=== PATIENT | male | born 1970 | race Caucasian/White ===

== ENCOUNTER 2017-04-27 07:42 | Emergency (ER) | payer BC ==
[2017-04-27 09:52] VITALS: BP 133/88
--- NOTE | 2017-04-27 10:34 | UC ---
Throat Pain/Nasal Jcarlos HPI - HPI Summary HPI Summary: 46 y/o male presents to the urgent care c/o sore throat and JOHNSTON for the past 36 hrs. Patient report his pain in 5/10 and he has ear pain with pressure. Pt denies fever, SOB, cough, N/V/D. chest pain and sick contacts. Patient has not other complains - History of Current Complaint Chief Complaint: UCGeneralIllness Stated Complaint: SORE THROAT AND HEADACHE Time Seen by Provider: 04/27/17 09:22 Hx Obtained From: Patient Onset/Duration: Gradual Onset, Lasting Hours, Still Present Severity: Moderate Pain Intensity: 5 Pain Scale Used: 0-10 Numeric Associated Signs & Symptoms: Positive: Dysphagia. Negative: Hoarseness, Sinus Discomfort, Nasal Discharge, Fever, Vomiting, Rash - Epiglottits Risk Factors Epiglottis Risk Factors: Negative - Allergies/Home Medications Allergies/Adverse Reactions: Allergies Allergy/AdvReac Type Severity Reaction Status Date / Time Phenobarbital Allergy Mild Rash Verified 04/27/17 07:49 PMH/Surg Hx/FS Hx/Imm Hx - Additional Past Medical History Additional PMH: positive factor V leiden, EtOH abuse Previously Healthy: Yes - Surgical History Surgical History: Yes Surgery Procedure, Year, and Place: ABD HERNIA REPAIR; mohs nose and forehead - Family History Known Family History: Positive: None Family History: NON CONTRIBUTORY - Social History Occupation: Employed Full-time Lives: With Family Alcohol Use: None Substance Use Type: None Smoking Status (MU): Never Smoked Tobacco - Immunization History Most Recent Tetanus Shot: not sure Review of Systems Constitutional: Negative Skin: Negative Eyes: Negative ENT: Sore Throat, Ear Ache Respiratory: Negative Cardiovascular: Negative Gastrointestinal: Negative Genitourinary: Negative Motor: Negative Musculoskeletal: Negative Neurological: Negative Psychological: Negative All Other Systems Reviewed And Are Negative: Yes Physical Exam Triage Information Reviewed: Yes Appearance: Well-Appearing, No Pain Distress, Well-Nourished Vital Signs: Initial Vital Signs Temp 99.7 F 04/27/17 07:50 Pulse 84 04/27/17 07:50 Resp 16 04/27/17 07:50 BP 115/71 04/27/17 07:50 Pulse Ox 100 04/27/17 07:50 Vital Signs Reviewed: Yes Eye Exam: Normal Eyes: Positive: Conjunctiva Clear ENT: Positive: Hearing grossly normal, Pharyngeal erythema - b/l exudate, Tonsillar swelling, Tonsillar exudate - b/l, Other: - Unable to viasualize TMS due to b/l ear canal impacted with cerumen. Neck exam: Normal Neck: Positive: Supple, Nontender, Enlarged Nodes @ - anterior cervical lymphoadenopathy b/l Respiratory Exam: Normal Respiratory: Positive: Chest non-tender, Lungs clear, Normal breath sounds Cardiovascular Exam: Normal Cardiovascular: Positive: RRR, No Murmur, Pulses Normal Abdominal Exam: Normal Abdomen Description: Positive: Nontender, No Organomegaly, Soft Bowel Sounds: Positive: Present Musculoskeletal Exam: Normal Musculoskeletal: Positive: Strength Intact, ROM Intact, No Edema Neurological Exam: Normal Psychological Exam: Normal Skin Exam: Normal Throat Pain/Nasal Course/Dx - Course Course Of Treatment: Sore throat with JOHNSTON and ear pressure: Hx obtained. PE abnormal findings:ENT: Positive: Hearing grossly normal, Pharyngeal erythema - b /l exudate, Tonsillar swelling, Tonsillar exudate - b/l, Other: - Unable to viasualize TMS due to b/l ear canal impacted with cerumen. Rapid strep ordered : result: positive. Pt Rx Amoxicillin 875mg PO BID x 10 days, Ibuprofen 800mg PO q8hrs prn and Carbamide peroxide otic for his cerumen impaction. Pt advised Please take medications as instructed and finish the full course of treatment to avoid recurrent infection. If symptoms do not improve or worsen after the course of antibiotics, he should either follow up with your PCP or return to the urgent care for further evaluation and treatment. Pt understood and agreed. - Differential Dx/Diagnosis Differential Diagnosis/HQI/PQRI: Influenza, Laryngitis, Mononucleosis, Otitis Media, Pharyngitis, URI Provider Diagnoses: strep pharyngitis, B/L ear impaction. Discharge - Discharge Plan Condition: Stable Disposition: HOME Prescriptions: Amoxicillin (*) [Amoxicillin 875 MG (*)] 875 mg PO BID #20 tab Carbamide Peroxide 6.5% OTIC* [DEBROX 6.5% Otic*] 5 drop BOTH EARS BID #1 bottle Ibuprofen TAB* [Motrin TAB* 800 MG] 800 mg PO Q6H #20 tab Patient Education Materials: Strep Throat (ED) Referrals: John Wagner MD [Primary Care Provider] - 2 Days Additional Instructions: Please take medications as instructed and finish the full course of treatment to avoid recurrent infection. If you do not improve or if symptoms worsen after the course of antibiotics, you should either follow up with your PCP or return to the urgent care for further evaluation and treatment.
== END 2017-04-27 10:15 | disposition home or self-care (01) ==
LOC: UCEAST 07:42
DX: J02.0 Streptococcal pharyngitis (principal); H61.23 Impacted cerumen, bilateral; D68.51 Activated protein C resistance
CPT/HCPCS: 87651; 99212; G0463

== ENCOUNTER 2017-06-20 07:06 | Emergency (ER) | payer BC ==
[2017-06-20 07:14] VITALS: BP 132/76
[2017-06-20] MEDS ORDERED: Tetan/Diph/Pertus SYR(Tdap)* 0.5 ML SYR(BOOSTRIX) use SYR IM ONE (07:19)
--- NOTE | 2017-06-20 08:34 | ED ---
Skin Complaint - HPI Summary HPI Summary: 46 y/o male presents to the urgent care c/o puncture wound after steeping on a nail while walking over [place] manure on 06/18/2017. Pt states he was wearing boots and his Tetanus vaccine was given on 07/2015. He states pain is 2/10 specially at touch or walking. Pt denies redness, swelling, fever, SOB, chest pain, N/V/D. Pt has not other complains. - History of Current Complaint Chief Complaint: UCWounds Time Seen by Provider: 06/20/17 07:19 Stated Complaint: PUNCTURE WOUND Hx Obtained From: Patient Onset/Duration: Started Days Ago, Traumatic, Still Present Skin Exposure Onset/Duration: Days Ago - 06/18/2017 Timing: Constant, Lasting Days Onset Severity: Moderate Current Severity: Mild Pain Intensity: 2 Pain Scale Used: 0-10 Numeric Skin Location: Discrete - Plantar side of the RT foot w/ puncture wound Character: Pain Aggravating Symptom(s): Touch Alleviating Symptom(s): Cold Associated Signs & Symptoms: Negative Related History: Trauma - Allergy/Home Medications Allergies/Adverse Reactions: Allergies Allergy/AdvReac Type Severity Reaction Status Date / Time Phenobarbital Allergy Mild Rash Verified 04/27/17 07:49 PMH/Surg Hx/FS Hx/Imm Hx Previously Healthy: Yes - Cancer History Cancer Type, Location and Year: basal cell CA to nose and forehead. - Surgical History Surgery Procedure, Year, and Place: ABD HERNIA REPAIR; mohs nose and forehead Infectious Disease History: No Infectious Disease History: Denies: Hx Clostridium Difficile, Hx Hepatitis, Hx Human Immunodeficiency Virus (HIV), Hx of Known/Suspected MRSA, Hx Shingles, Hx Tuberculosis, Hx Known/ Suspected VRE, Hx Known/Suspected VRSA, History Other Infectious Disease, Traveled Outside the [place] in Last 30 Days - Family History Known Family History: Positive: Hypertension Family History: NON CONTRIBUTORY - Social History Occupation: Employed Full-time Lives: With Family Alcohol Use: None Substance Use Type: Reports: None Smoking Status (MU): Never Smoked Tobacco Review of Systems Constitutional: Negative Eyes: Negative ENT: Negative Cardiovascular: Negative Respiratory: Negative Gastrointestinal: Negative Genitourinary: Negative Musculoskeletal: Negative Positive: Other - RT foot plantar pain s/p puncture wound, Neurological: Negative Psychological: Normal All Other Systems Reviewed And Are Negative: Yes Physical Exam Triage Information Reviewed: Yes Vital Signs On Initial Exam: Initial Vitals Temp Pulse Resp BP Pulse Ox 97.6 F 65 18 132/76 99 06/20/17 07:10 06/20/17 07:10 06/20/17 07:10 06/20/17 07:10 06/20/17 07:10 Appearance: Positive: Well-Appearing, No Pain Distress, Well-Nourished Skin: Positive: Other - Discrete puncture wound w/ minimum erythema at the medial anterior plantar portion of the RT foot. mild tenderness on deep palpation, no swelling. FROM of RT foot, positive pulses, capillary refill, sensation intact, and reflexes WNL. Head/Face: Positive: Normal Head/Face Inspection Eyes: Positive: Normal, EOMI, CHIKA, Conjunctiva Clear ENT: Positive: Normal ENT inspection, Hearing grossly normal, Pharynx normal, TMs normal Neck: Positive: Supple, Nontender, No Lymphadenopathy Respiratory/Lung Sounds: Positive: Clear to Auscultation, Breath Sounds Present , Decreased Breath Sounds Cardiovascular: Positive: Normal, RRR, Pulses are Symmetrical in both Upper and Lower Extremities, S1, S2 Abdomen Description: Positive: Nontender, No Organomegaly, Soft. Negative: CVA Tenderness (R), CVA Tenderness (L) Bowel Sounds: Positive: Present Musculoskeletal: Positive: Normal, Strength/ROM Intact, Limited @ Neurological: Positive: Normal, Sensory/Motor Intact, Alert, Oriented to Person Place, Time, CN Intact II-III, Reflexes Intact, Normal Gait Psychiatric: Positive: Normal Diagnostics - Vital Signs Vital Signs Temp Pulse Resp BP Pulse Ox 06/20/17 07:10 97.6 F 65 18 132/76 99 - Laboratory Lab Statement: Any lab studies that have been ordered have been reviewed, and results considered in the medical decision making process. Course/Dx - Course Course Of Treatment: 46 y/o male presents to the urgent care c/o puncture wound after steeping on a nail while walking over [place] manure on 06/18/2017. Pt states he was wearing boots and his Tetanus vaccine was given on 07/2015. He states pain is 2/10 specially at touch or walking. Pt denies redness, swelling , fever, SOB, chest pain, N/V/D. HX obtained. Pt Tetanus vaccine given on 2014. Pt Rx Augmentin PO and Ibuprofen PO and advised if redness, fever and swelling develops to please return to the urgent care or go to the ER. Pt understood and agreed and left the clinic ambulating. - Differential Diagnoses - Skin Complaint Differential Diagnoses: Allergic Reaction, Cellulitis, Tick Born Illness, Other - puncture wound, laceration, abrasion - Diagnoses Provider Diagnoses: Puncture wound of right foot excluding toes without complication Discharge - Discharge Plan Condition: Stable Disposition: HOME Prescriptions: Amoxicillin/Clavulanate TAB* [Augmentin TAB 875*] 875 mg PO BID #20 tab Ibuprofen TAB* [Motrin TAB* 800 MG] 800 mg PO Q6H #20 tab Patient Education Materials: Puncture Wound (ED) Referrals: John Wagner MD [Primary Care Provider] - 4 Days Additional Instructions: AUGMENTIN: Augmentin is a mixture of amoxicillin and clavulanate. Amoxicillin is a member of the penicillin family. It covers the germs likely to cause ear, bronchial, and urinary infections better than plain penicillin. The addition of clavulanate allows it to cover staph infections of the skin, as well as resistant cases of ear and sinus infections. Your physician has chosen Augmentin for you because of the special nature of your situation. Augmentin is best taken with meals. Nausea after taking the medication is rare, but can occur. Diarrhea can occur, particularly in small children. Vaginal yeast infections, and oral thrush in infants are also common. Contact your physician if these problems occur. Allergy to penicillins is common. If you have had an allergic reaction to any drug of the penicillin family, you should never take any other penicillin. Notify your doctor at once if you develop hives, shortness of breath, swelling, or faintness. ANYTIME YOU TAKE AN ANTIBIOTIC, IT IS IMPORTANT TO REPLENISH THE BODY'S SUPPLY OF "GOOD BACTERIA." YOU CAN GET GOOD BACTERIA FROM HIGH QUALITY CULTURED FOODS SUCH LOCAL YOGURT, SOUR KRAUT, MINDY MAULIK, NATURALLY FERMENTED PICKLES AND PROBIOTIC DRINKS. YOU CAN ALSO GET GOOD BACTERIA FROM A PROBIOTIC SUPPLEMENT.
== END 2017-06-20 08:41 | disposition home or self-care (01) ==
LOC: UCEAST 07:06
DX: S91.139A Puncture wound without foreign body of unspecified toe(s) without damage to nail, initial encounter (principal); Z85.828 Personal history of other malignant neoplasm of skin; W45.0XXA Nail entering through skin, initial encounter
CPT/HCPCS: 99212; G0463

== ENCOUNTER 2017-09-02 21:28 | Observation (INO) | payer BC ==
[2017-09-02] MEDS ORDERED: NS 0.9% 1000 ML* 1,000 ML IV ONE (23:16)
[2017-09-02] MEDS ORDERED: DOXYcycline CAP(*) 100 MG PO ONE (23:18)
[2017-09-03 00:30] LABS: Albumin 4.4 g/dL (3.2-5.2); Total Bilirubin 0.9 mg/dL (0.2-1.0)
[2017-09-03 00:31] LABS: Calcium 9.5 mg/dL (8.6-10.3); EGFR African American 103.5 (>60); EGFR Non-African American 80.4 (>60); Globulin 2.9 g/dL (2-4); Potassium 3.9 mmol/L (3.5-5.0); Total Protein 7.3 g/dL (6.4-8.9)
[2017-09-03 00:48] LABS: Hematocrit 41 % (42-52); Hemoglobin 13.6 g/dl (14.0-18.0); Mean Corpuscular HGB Conc 34 g/dl (31-36); Mean Corpuscular Hemoglobin 29 pg (27-31); Mean Corpuscular Volume 87 fL (80-94); Mean Platelet Volume 8 um3 (7.4-10.4); Red Blood Count 4.68 10^6/ul (4.0-5.4); Red Cell Distribution Width 13 % (10.5-15); White Blood Count 15.4 10^3/ul (3.5-10.8)
[2017-09-03] MEDS ORDERED: Iohexol 300* (CONTRAST) 10 ML SDV IV ONE (01:47)
[2017-09-03] MEDS ORDERED: Ertapenem* 1 GM in NS 0.9% 50 ML* 50 ML IVPB ONE (03:37)
[2017-09-03] MEDS ORDERED: Morphine INJ* 2 MG/ML 1 ML SYRINGE (TWO MG - NEW SYRINGE VERSION) IV PRN (03:45)
[2017-09-03] MEDS ORDERED: Metoclopramide IV* 5 MG/ML 2 ML VIAL IV PRN (03:45)
[2017-09-03 03:47] LABS: Urine Bilirubin Negative (Negative); Urine Glucose Negative (Negative); Urine Nitrite Negative (Negative)
[2017-09-03] MEDS ORDERED: NS 0.9% 50 ML* 50 ML ONE (03:51)
--- NOTE | 2017-09-03 05:07 | ED ---
Sarah Kamara Emily, scribed for Guero Torres on 09/02/17 at 2317 . Abdominal Pain/Male - HPI Summary HPI Summary: This patient is a 46 year old M presenting to [facility] accompanied by family with a chief complaint of RLQ abd pain since 1800 today. The patient rates the pain 4 /10 in severity. Symptoms aggravated by nothing. Symptoms alleviated by nothing. Patient reports bloating, nausea, vomiting, and diaphoresis. Patient denies diarrhea, hematuria, urinary frequency, CP, and SOB. Pt reports he removed a tick from his left thigh yesterday. - History of Current Complaint Chief Complaint: EDAbdPain Stated Complaint: ABD PAIN Time Seen by Provider: 09/02/17 22:41 Hx Obtained From: Patient Onset/Duration: Sudden Onset, Lasting Hours, Still Present Timing: Constant Severity Initially: Moderate Severity Currently: Moderate Pain Intensity: 4 Pain Scale Used: 0-10 Numeric Location: Discrete At: RLQ Aggravating Factor(s): Nothing Alleviating Factor(s): Nothing Associated Signs And Symptoms: Positive: Other - Positive bloating, nausea, vomiting, and diaphoresis. Negative diarrhea, hematuria, urinary frequency, CP, and SOB - Allergies/Home Medications Allergies/Adverse Reactions: Allergies Allergy/AdvReac Type Severity Reaction Status Date / Time Phenobarbital Allergy Mild Rash Verified 09/02/17 21:36 PMH/Surg Hx/FS Hx/Imm Hx Previously Healthy: No Opthamlomology History: Denies: Hx Legally Blind EENT History: Denies: Hx Deafness - Cancer History Cancer Type, Location and Year: basal cell CA to nose and forehead. - Surgical History Surgery Procedure, Year, and Place: ABD HERNIA REPAIR; mohs nose and forehead Infectious Disease History: No Infectious Disease History: Denies: Hx Clostridium Difficile, Hx Hepatitis, Hx Human Immunodeficiency Virus (HIV), Hx of Known/Suspected MRSA, Hx Shingles, Hx Tuberculosis, Hx Known/ Suspected VRE, Hx Known/Suspected VRSA, History Other Infectious Disease, Traveled Outside the [place] in Last 30 Days - Family History Known Family History: Positive: Hypertension Family History: NON CONTRIBUTORY - Social History Occupation: Employed Full-time Lives: With Family Alcohol Use: None Substance Use Type: Reports: None Smoking Status (MU): Never Smoked Tobacco Review of Systems Positive: Skin Diaphoresis Negative: Chest Pain Negative: Shortness Of Breath Positive: Abdominal Pain, Vomiting, Nausea, Other - Positive bloating. Negative : Diarrhea Negative: frequency, hematuria All Other Systems Reviewed And Are Negative: Yes Physical Exam Triage Information Reviewed: Yes Vital Signs On Initial Exam: Initial Vitals Temp Pulse Resp BP Pulse Ox 97.1 F 52 16 116/72 100 09/02/17 21:31 09/02/17 21:31 09/02/17 21:31 09/02/17 21:31 09/02/17 21:31 Vital Signs Reviewed: Yes Appearance: Positive: Well-Appearing, No Pain Distress Skin: Positive: Warm, Skin Color Reflects Adequate Perfusion, Dry, Other - Insect bite over L inner thigh Head/Face: Positive: Normal Head/Face Inspection Eyes: Positive: EOMI, CHIKA ENT: Positive: Normal ENT inspection Neck: Positive: Supple, Nontender Respiratory/Lung Sounds: Positive: Clear to Auscultation, Breath Sounds Present Cardiovascular: Positive: RRR, Pulses are Symmetrical in both Upper and Lower Extremities Abdomen Description: Positive: Soft, Other: - Tenderness in RLQ Musculoskeletal: Positive: Normal, Strength/ROM Intact Neurological: Positive: Normal, Sensory/Motor Intact, Alert, Oriented to Person Place, Time Diagnostics - Vital Signs Vital Signs Temp Pulse Resp BP Pulse Ox 09/02/17 21:31 97.1 F 52 16 116/72 100 - Laboratory Lab Results: Lab Results 09/02/17 09/03/17 09/03/17 Range/Units 23:50 00:05 00:05 WBC 15.4 H (3.5-10.8) 10^3/ul RBC 4.68 (4.0-5.4) 10^6/ul Hgb 13.6 L (14.0-18.0) g/dl Hct 41 L (42-52) % MCV 87 (80-94) fL MCH 29 (27-31) pg MCHC 34 (31-36) g/dl RDW 13 (10.5-15) % Plt Count 222 (150-450) 10^3/ul MPV 8 (7.4-10.4) um3 Neut % (Auto) 89.1 H (38-83) % Lymph % (Auto) 5.0 L (25-47) % [place] % (Auto) 5.4 (1-9) % Eos % (Auto) 0.2 (0-6) % Baso % (Auto) 0.3 (0-2) % Absolute Neuts (auto) 13.7 H (1.5-7.7) 10^3/ul Absolute Lymphs (auto) 0.8 L (1.0-4.8) 10^3/ul Absolute Monos (auto) 0.8 (0-0.8) 10^3/ul Absolute Eos (auto) 0 (0-0.6) 10^3/ul Absolute Basos (auto) 0.1 (0-0.2) 10^3/ul Absolute Nucleated RBC 0 10^3/ul Nucleated RBC % 0 Sodium 135 (133-145) mmol/L Potassium 3.9 (3.5-5.0) mmol/L Chloride 102 (101-111) mmol/L Carbon Dioxide 24 (22-32) mmol/L Anion Gap 9 (2-11) mmol/L BUN 19 (6-24) mg/dL Creatinine 1.00 (0.67-1.17) mg/dL Est GFR ( Amer) 103.5 (>60) Est GFR (Non-Af Amer) 80.4 (>60) BUN/Creatinine Ratio 19.0 (8-20) Glucose 106 H (70-100) mg/dL Lactic Acid 0.7 (0.5-2.0) mmol/L Calcium 9.5 (8.6-10.3) mg/dL Total Bilirubin 0.90 (0.2-1.0) mg/dL AST 18 (13-39) U/L ALT 20 (7-52) U/L Alkaline Phosphatase 66 (34-104) U/L Troponin I 0.00 (<0.04) ng/mL Total Protein 7.3 (6.4-8.9) g/dL Albumin 4.4 (3.2-5.2) g/dL Globulin 2.9 (2-4) g/dL Albumin/Globulin Ratio 1.5 (1-3) Lipase 26 (11.0-82.0) U/L Urine Color Urine Appearance Urine pH (5-9) Ur Specific [place] (1.010-1.030) Urine Protein (Negative) Urine Ketones (Negative) Urine Blood (Negative) Urine Nitrate (Negative) Urine Bilirubin (Negative) Urine Urobilinogen (Negative) Ur Leukocyte Esterase (Negative) Urine Glucose (Negative) 09/03/17 Range/Units 02:15 WBC (3.5-10.8) 10^3/ul RBC (4.0-5.4) 10^6/ul Hgb (14.0-18.0) g/dl Hct (42-52) % MCV (80-94) fL MCH (27-31) pg MCHC (31-36) g/dl RDW (10.5-15) % Plt Count (150-450) 10^3/ul MPV (7.4-10.4) um3 Neut % (Auto) (38-83) % Lymph % (Auto) (25-47) % [place] % (Auto) (1-9) % Eos % (Auto) (0-6) % Baso % (Auto) (0-2) % Absolute Neuts (auto) (1.5-7.7) 10^3/ul Absolute Lymphs (auto) (1.0-4.8) 10^3/ul Absolute Monos (auto) (0-0.8) 10^3/ul Absolute Eos (auto) (0-0.6) 10^3/ul Absolute Basos (auto) (0-0.2) 10^3/ul Absolute Nucleated RBC 10^3/ul Nucleated RBC % Sodium (133-145) mmol/L Potassium (3.5-5.0) mmol/L Chloride (101-111) mmol/L Carbon Dioxide (22-32) mmol/L Anion Gap (2-11) mmol/L BUN (6-24) mg/dL Creatinine (0.67-1.17) mg/dL Est GFR ( Amer) (>60) Est GFR (Non-Af Amer) (>60) BUN/Creatinine Ratio (8-20) Glucose (70-100) mg/dL Lactic Acid (0.5-2.0) mmol/L Calcium (8.6-10.3) mg/dL Total Bilirubin (0.2-1.0) mg/dL AST (13-39) U/L ALT (7-52) U/L Alkaline Phosphatase (34-104) U/L Troponin I (<0.04) ng/mL Total Protein (6.4-8.9) g/dL Albumin (3.2-5.2) g/dL Globulin (2-4) g/dL Albumin/Globulin Ratio (1-3) Lipase (11.0-82.0) U/L Urine Color Yellow Urine Appearance Clear Urine pH 5.0 (5-9) Ur Specific [place] 1.021 (1.010-1.030) Urine Protein Negative (Negative) Urine Ketones 2+ H (Negative) Urine Blood Negative (Negative) Urine Nitrate Negative (Negative) Urine Bilirubin Negative (Negative) Urine Urobilinogen Negative (Negative) Ur Leukocyte Esterase Negative (Negative) Urine Glucose Negative (Negative) Result Diagrams: 09/03/17 00:05 09/02/17 23:50 Lab Statement: Any lab studies that have been ordered have been reviewed, and results considered in the medical decision making process. - CT Abdominal Pelvic CT Interpretation Completed By: Radiologist - A CT A/P read by radiologist reveals thick-walled mid appendix up to 13 mm diameter in its mid portion with adjacent peritoneal thickening and no contrast filling despite contrast passage into colon, suspicious for acute appendicitis. No abscess, free fluid or free air. Unremarkable pancreas and gallbladder. Tiny cortical hypodensity right kidney. Small right hepatic cyst or hemangioma. Gastroesophageal reflux. ED physician has reviewed this radiology report and agrees. Abdominal Pain Fem Course/Dx - Course Assessment/Plan: This patient is a 46 year old M [facility] by family with a chief complaint of RLQ abd pain since 1800 today. The patient rates the pain 4/10 in severity. Symptoms aggravated by nothing. Symptoms alleviated by nothing. Patient reports bloating, nausea, vomiting, and diaphoresis. Patient denies diarrhea, hematuria, urinary frequency, CP, and SOB. Pt reports he removed a tick from his left thigh yesterday. Physical Exam Findings. Tenderness in RLQ. Insect bite redness over L inner thigh. Medical Decision Making. A CT A/P read by radiologist reveals thick-walled mid appendix up to 13 mm diameter in its mid portion with adjacent peritoneal thickening and no contrast filling despite contrast passage into colon, suspicious for acute appendicitis. No abscess, free fluid or free air. Unremarkable pancreas and gallbladder. Tiny cortical hypodensity right kidney. Small right hepatic cyst or hemangioma. Gastroesophageal reflux. ED physician has reviewed this radiology report and agrees. In the ED course the patient was given fluids, Invanz, Doxycycline, and contrast. We discussed patient care with Dr. Santoyo and they recommended admitting pt. Acute appendicitis; admit pt to Dr. Santoyo. The patient is agreeable with this plan. - Diagnoses Differential Diagnosis/HQI/PQRI: Appendicitis, Bowel Obstruction, Constipation, Diverticulitis, Hepatitis, Pancreatitis, Peptic Ulcer Disease, Renal Colic, Ureteral Stone Provider Diagnoses: Acute appendicitis - Provider Notifications Discussed Care Of Patient With: Ortega Santoyo Time Discussed With Above Provider: 03:41 Instructed by Provider To: Other - Consult with Dr. Santoyo (surgery) at 0341. He agrees to admit pt. Discharge - Discharge Plan Condition: Stable Disposition: ADMITTED TO [facility] The documentation as recorded by the Sarah hedrick Emily accurately reflects the service I personally performed and the decisions made by Melissa call Emmanuel.
[2017-09-03] MEDS ORDERED: Lidocaine 2% PF * 5 ML VIAL ONE (08:37)
[2017-09-03] MEDS ORDERED: KETAMINE HCL* 50 MG/ML 10 ML VIAL ONE (08:37)
[2017-09-03] MEDS ORDERED: Propofol* 10 MG/ML 20 ML BTL IV PUSH ONE (08:37)
[2017-09-03] MEDS ORDERED: Cisatracurium* 2 MG/ML MDV 5 ML ONE (08:37)
[2017-09-03] MEDS ORDERED: Ketorolac INJ* 30 MG/ML 1 ML VIAL ONE (08:37)
[2017-09-03] MEDS ORDERED: Midazolam* 1 MG/ML 5 ML VIAL (5 MG) ONE (08:37)
[2017-09-03] MEDS ORDERED: Dexamethasone IV* 4 MG/ML 1 ML (4 MG) ONE (08:37)
[2017-09-03] MEDS ORDERED: Ondansetron INJ* 2 MG/ML VIAL ONE (08:37)
[2017-09-03] MEDS ORDERED: fentaNYL* 50 MCG/ML 2 ML VIAL (100 MCG VIAL) ONE ×2 (08:37→10:29)
[2017-09-03] MEDS ORDERED: Piperacillin/Tazobactam VIAL*) 3.375 GM VIAL (COMPD & OVERRIDE) IVPB ONE (09:04)
[2017-09-03] MEDS ORDERED: ceFAZolin 2 GM PREMIX (*) 2 GM/50 ML BAG IVPB ONE (09:07)
[2017-09-03] MEDS ORDERED: Famotidine IV* 10 MG/ML 2 ML (20 mg) ONE (09:34)
[2017-09-03] MEDS ORDERED: Bupivacaine 0.5% SDV PF* 30 ML VIAL ONE (09:34)
[2017-09-03] MEDS ORDERED: fentaNYL* 50 MCG/ML 2 ML VIAL (100 MCG VIAL) IV PRN (09:51)
[2017-09-03] MEDS ORDERED: DiMENhydriNATE IV* 50 MG/ML VIAL IV PUSH PRN (09:51)
[2017-09-03] MEDS ORDERED: oxyCODONE/Acetamin 5/325 MG* TAB PO PRN ×2 (09:51→11:04)
[2017-09-03] MEDS ORDERED: Ondansetron INJ* 2 MG/ML VIAL IV PRN ×2 (09:51→11:04)
--- NOTE | 2017-09-03 09:59 | HP ---
CC: Dr. John [facility]; [facility] HISTORY AND PHYSICAL: DATE OF ADMISSION: 09/03/17 HISTORY OF PRESENT ILLNESS: I was contacted in the overnight period regarding Mr. Rodgers, a 46-y ear-old gentleman, who presented to the emergency room with complaints of right lower quadrant pain starting at 5 p.m. yesterday. Workup in the emergency room included a CAT scan and labs that was co nsistent with acute appendicitis. I asked the patient to be admitted to my service and now I see hi m today. It is approximately 4 hours since the admission. The patient continues to complain of right lower quadrant pain, recently has had a dose of morphine. He also had antinausea medication. He had one episode of vomiting while on the CAT scanner. The patient describes acute onset of pain approximately 5 p.m. just around dinnertime. He did not e at dinner and decided to go to the hospital. The pain was focused in the right lower quadrant. It was relieved with lying still and with narcotics. It was minimally radiating to his testicle on the right, but not to his back. He denied fevers, but felt somewhat flushed on the car ride over to [facility]. He denies any previous similar symptoms. Currently, he has an appetite. He is passing flatus. He cannot remember his last bowel movement, but he has no complaints. PAST MEDICAL HISTORY: Alcoholism. He stopped drinking approximately 5 years ago and factor V Leide n. PAST SURGICAL HISTORY: Umbilical hernia repair with mesh. MEDICATIONS: None. ALLERGIES: PHENOBARBITAL. FAMILY HISTORY: Noncontributory. No family history of ulcerative colitis or Crohn's disease. SOCIAL HISTORY: He is . Lives with his . 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 Good exercise tolerance. Plays ice hockey regularly. REVIEW OF SYSTEMS: No headache or visual disturbances. No shortness of breath or chest pain. Abdo selena complaint as described. No dysuria or hematuria. No problems with bowel movements. The shar ent has never had a colonoscopy. Factor V Leiden, but he has never had issues with this. He was on Coumadin for a short period when he was dealing with alcoholism. He had been off of Coumadin. No endocrine disorders. No psychiatric illnesses. PHYSICAL EXAMINATION GENERAL: He is alert and oriented x3, in mild distress, lying in bed. VITAL SIGNS: Temperature is 99.9, blood pressure 128/61, heart rate 78. HEAD, EARS, EYES, NOSE, and THROAT: Normocephalic, atraumatic. Sclerae anicteric. Mucous membranes are dry. NECK: No lymphadenopathy. LUNGS: Clear. ABDOMEN: Soft, nondistended. Tender in McBurney's with mild voluntary guarding. No rebound. No ma ss or hernias noted. Infraumbilical scar appreciated. No CVA tenderness. EXTREMITIES: Show no pitting edema. RECTAL/TESTICULAR: Exam not performed. LABORATORY DATA: Labs reviewed. Show white count of 15.4 with left shift. H and H of 14 and 41. INR and PTT within normal limits. Chemistry panel normal along with LFTs. The patient's urinalysi s shows 2+ ketones. The patient underwent a CAT scan of the abdomen and pelvis. These images were reviewed. I see no f ree fluid. No free air. This was with p.o. contrast. Oral contrast does make it into the the cecu m, but not into an inflamed periappendix. This is consistent with acute appendicitis. IMPRESSION: Acute appendicitis without perforation. PLAN/RECOMMENDATIONS: Laparoscopic appendectomy. I outlined the details of the procedure, going ov er the risks, benefits, and alternatives. The patient wishes to proceed. We spoke of the possible complications, which include bleeding, infection, need for open procedure, need for additional proce dures, abscess formation, injury to adjacent organs, and the patient agreed. He also understands my partner, Dr. Waggoner, will be performing the surgery. He has no additional questions and a team will be brought in. He did receive a dose of antibiotics and he will receive another preoperative d ose. [id number]/[facility] #: [id number]
[2017-09-03] MEDS ORDERED: Neostigmine Methylsulfate* 2 MG/2 ML SYRINGE ONE (10:24)
[2017-09-03] MEDS ORDERED: Glycopyrrolate IV* 0.2 MG/ML 1 ML VIAL ONE (10:24)
--- NOTE | 2017-09-03 11:02 | SURGPN ---
Brief Operative Note - Surgery Procedures: Procedures OPERATIVE REPORT PRE-OP: Acute appendicitis POST-OP: Acute gangrenous appendicitis PROCEDURE: Laparoscopic appendectomy SURGEON: MD Edilson ANESTHESIA: General with local; Dr. Guevara ASST: none IVF: 1 liter of crystalloid EBL: min SPECIMEN: appendix DRAIN: none WOUND CLASS: Contaminated COMPLICATIONS: none TO PACU
[2017-09-03] MEDS ORDERED: Ketorolac INJ* 30 MG/ML 1 ML VIAL IV PUSH PRN (11:04)
[2017-09-03] MEDS ORDERED: Acetaminophen TAB* 325 MG PO PRN (11:04)
--- NOTE | 2017-09-03 11:27 | RAD ---
CLINICAL HISTORY: Right lower quadrant pain COMPARISON: None TECHNIQUE: Contrast enhanced CT examination of the abdomen and pelvis from the lung bases through the initial tuberosities. The patient received 100 mL Omnipaque 300 intravenously prior to imaging.The patient received oral contrast as well prior to imaging. FINDINGS: VISUALIZED LUNG BASES: The visualized lung bases are grossly clear. There is no pleural effusion. ABDOMEN AND PELVIS: The spleen, pancreas and adrenal glands are grossly normal in appearance. The gallbladder is normal. The kidneys are normal in appearance without focal mass, calcification or signs of hydronephrosis. The oral contrast has progressed as far as the base of the cecum. The small and large bowel are not distended. The appendix is minimally enlarged measuring 1.6 cm in diameter. There is mild periappendiceal infiltration of the mesenteric fat. There is no drainable fluid collection. There is no gross retroperitoneal or mesenteric lymphadenopathy. The pelvic viscera is normal in appearance. Vasectomy clips are noted bilaterally. The abdominal aorta and iliac arteries are normal in course and diameter. Degenerative changes include multilevel loss of intervertebral disc height involving the lower thoracic and lumbar spine.There are no sinister bone lesions. IMPRESSION: In the correct clinical setting, CT findings are consistent with early appendicitis.
[2017-09-03] MEDS: Heparin VIAL(*) 5000 UNITS/ML VIAL (FIVE THOUSAND) SUBCUT SCH ×2 (14:23→22:18)
[2017-09-03] MEDS: LR IV SCH (20:07)
--- NOTE | 2017-09-03 20:31 | OP ---
CC: [facility]; Dr. John Wagner* OPERATIVE REPORT: DATE OF OPERATION: 09/03/17 - Inpatient, room SSU 333-01 DATE OF : 70 SURGEON: Jac Waggoner MD [employer]: None. ANESTHESIOLOGIST: Cleve Guevara MD ANESTHESIA: Local with general. PRE-OP DIAGNOSIS: Acute appendicitis. POST-OP DIAGNOSIS: Acute gangrenous appendicitis. OPERATIVE PROCEDURE: Laparoscopic appendectomy. INDICATIONS: Mr. Lee Rodgers is a 46-year-old gentleman who developed abdominal distention and bloating last night around dinner time. This was associated with some nausea and anorexia and the pain developed subsequently in the right lower quadrant worsening in severity, he presented to the emergency room. He was noted to have elevated white blood cell count and a CAT scan of the abdomen and pelvis, which showed findings consistent with early acute appendicitis. He is admitted to the surgical service and received IV antibiotics. He has been kept n.p.o. He is now to proceed with appendectomy this morning. The procedure was discussed with the patient and his and the risks but not limited to bleeding, infection, intraabdominal abscess formation, injury to peritoneal and retroperitoneal structures, possibility of an open procedure, the risk of deep venous thrombosis and pulmonary embolism, as well as recovery time and activity restrictions were all discussed. The patient states that he has a factor V Leiden deficiency, which he is heterozygous, and has been on Coumadin in the past for deep venous thrombosis, but this was many years ago. It is not felt that he needs long-term anticoagulation, but appropriate precautions will be taken perioperatively using sequential compression devices and postoperative subcutaneous heparin for DVT prophylaxis and this was all discussed with the patient and his . ESTIMATED BLOOD LOSS: Minimal. IV FLUIDS: 1 L of crystalloid. WOUND CLASSIFICATION: Clean-contaminated. DRAINS: None. SPECIMENS: Appendix. FINDINGS: Acute gangrenous appendicitis in the distal two-thirds of the appendix without evidence of perforation, abscess, or purulent peritonitis. DESCRIPTION OF PROCEDURE: Written informed consent was obtained, the abdomen was marked with indelible ink and preoperative antibiotics were administered. The patient was taken to the operating room and placed in the supine position. Sequential compression devices and warming blanket were applied. General anesthesia was administered. The abdomen was prepped and draped in the usual sterile fashion. Time-out verification was completed. Initially, a small vertical incision was made about 3 fingerbreadths above the umbilicus. The patient had a previous umbilical hernia repair with mesh and I stayed superior to this area. The peritoneal cavity was entered under direct vision and a 12-mm blunt port was inserted and the abdomen was insufflated to 15 mmHg. Under direct vision, a left lower quadrant 5-mm port and a suprapubic 5-mm port was also placed. There were several adhesions to the anterior abdominal wall from the previous surgery and these were taken down bluntly with the LigaSure to improve visualization. The appendix was identified. It appeared to be intraperitoneal, but however the distal two-thirds were gangrenous without evidence of perforation or an abscess formation. There was no really purulence in the right lower quadrant either. The appendix was then elevated and then the mesoappendix was taken from distal to proximal. It appeared that there was most likely an appendicolith in the proximal portion of the appendix and the proximal third of the appendix and base of the cecum appeared to be viable and of normal caliber. Once the mesoappendix had been divided down to the healthy cecum, a borges load 45- mm stapler was used to divide the appendix at its base and it was subsequently removed from the abdominal cavity in an EndoCatch bag. Staple line appeared to be intact and hemostasis was assured. I irrigated the right lower quadrant as well as the pelvis. All ports removed under direct vision of the camera. There was no abdominal wall bleeding. The upper midline incision was closed at the fascial level with interrupted 0 Polysorb suture. The skin at all 3 incisions was approximated with a subcuticular 4-0 Polysorb suture. Steri- Strips were applied. The patient tolerated the procedure well and was taken to recovery room in stable condition. [id number]/[facility] #: [id number] JARRED
[2017-09-04] MEDS: LR IV SCH (02:35)
[2017-09-04] MEDS: Heparin VIAL(*) 5000 UNITS/ML VIAL (FIVE THOUSAND) SUBCUT SCH (06:18)
[2017-09-04 07:39] VITALS: BP 101/61
--- NOTE | 2017-09-04 08:35 | PN ---
Progress Note - Progress Note Date of Service: 09/04/17 SOAP: Subjective: Doing well with minimal pain Slept well yesterday Tolerating po and passing flatus Ambulating without difficulty. No dizziness or light headedness on getting up or ambulating Objective: Temp Pulse Resp BP Pulse Ox 98.1 F 47 18 101/61 96 09/04/17 07:20 09/04/17 07:20 09/04/17 07:39 09/04/17 07:20 09/04/17 07:39 Intake & Output 09/02/17 09/03/17 09/04/17 09/05/17 06:59 06:59 06:59 06:59 Intake Total 1050 6135 Output Total 400 3360 Balance 650 2775 Weight 195 lb 195 lb Intake: IV Fluids 1050 3505 LR 2505 Oral 2630 Output: Urine 400 3360 PEX: Comfortable Lungs are clear Cor is RRR Abdomen is soft and non-distended. Incisions are clean and dry. Bowel sounds are present. Ext without edema Assessment: POD# 1 s/p lap appy for acute gangrenous appendicitis. Bradycardia--asymptomatic and some lower BP suspect related to anesthesia-he is eating and making excellent urine and has no symptoms. Will follow for now. Plan: D/C home 5 days of oral Augmentin NSAID's for pain-he would like to avoid narcotics Post-op care reviewed, office follow up.
--- NOTE | 2017-09-04 23:09 | DS ---
CC: [facility]; John Wagner MD, [facility]* DISCHARGE SUMMARY: DATE OF ADMISSION: 09/03/17 DATE OF DISCHARGE: 09/04/17 PRINCIPAL DIAGNOSIS: Acute gangrenous appendicitis. PROCEDURE PERFORMED: Laparoscopic appendectomy. CONDITION ON DISCHARGE: Good. DISPOSITION: To home. INSTRUCTIONS FOR DISCHARGE: The patient wanted to avoid narcotic analgesia and was instructed to take nonsteroidals and plain Tylenol as needed. He was given a prescription that was sent to [facility] for Augmentin 875 mg p.o. b.i.d. for treatment of his gangrenous appendicitis and follow up. Other postoperative care instructions were reviewed and a written instruction sheet was given to him. Followup appointment was to be made in 7 to 10 days. BRIEF HISTORY: Mr. Lee Rodgers is a healthy 46-year-old gentleman, who does have a history of factor V Leiden deficiency, which is heterozygous with a remote history of deep vein thrombosis who presented to the emergency room with 68 hours of abdominal bloating and subsequent pain in the right lower quadrant. He was noted to have mild elevation of his white blood cell count and CAT scan confirmed acute appendicitis. He was admitted to the surgical service. HOSPITAL COURSE: He was started on IV antibiotics, taken to the operating room on the morning of presentation where he underwent a laparoscopic appendectomy for acute gangrenous appendicitis. There is no perforation or abscess. He tolerated it well. He had received ertapenem in the emergency room with acute 24-hour dosing. Postoperatively, he did well. His diet was advanced as tolerated. He remained afebrile. He had some relative bradycardia, although his heart rate and blood pressure were quite low on presentation and he was asymptomatic and this was felt secondary to anesthesia as well as surgical procedure. Postoperative day #1, he was tolerating regular diet. He was discharged home with the above instructions. [id number]/[facility] #: [id number] [facility]
== END 2017-09-04 11:05 | disposition home or self-care (01) ==
LOC: ED 21:28 → INTOOBSV 09-03 03:45 → SSU 09-03 03:45
PROVIDERS: ADMIT Surgery; ATTEND Surgery
PROC: 0DTJ4ZZ Resection of Appendix, Percutaneous Endoscopic Approach (ICD-10-PCS; principal; 2017-09-03 08:30)
DX: K35.80 Unspecified acute appendicitis (principal); D68.51 Activated protein C resistance
CPT/HCPCS: 36415; 74177; 80053; 81003; 83605; 83690; 84484; 85025; 85610; 85730; 86618; 88304; 96372; 96374; 96375; 99285; A9270-GY; C1776; G0378; J0690; J1100; J1335; J1644; J1885; J2250; J2270; J2405; J2543; J2704; J2765; J3010; Q9967

== ENCOUNTER 2019-09-04 18:24 | Emergency (ER) | payer BC ==
[2019-09-04 18:34] VITALS: BP 137/99
--- NOTE | 2019-09-04 18:47 | UC ---
Back Pain HPI - HPI Summary HPI Summary: per rn placement: "Pt stated that he has lower back pain. Pt has had something like this before 3 years. Pain started on Tuesday and is getting worse. Pt denies any injury, but does say that he slept in the front seat of the car for an hour" -denies trauma -no radiation into legs - just stays in b/l low back. hamstrings and hips feel tight. feels like he wants to crack it but cant -no loss bowel/bladder function. -no saddle parasthesia -has not tried anything OTC except for icy hot patch/heat/ice - History of Current Complaint Chief Complaint: UCBackPain Stated Complaint: LOWER BACK PAIN Time Seen by Provider: 09/04/19 18:35 Pain Intensity: 6 - Allergies/Home Medications Allergies/Adverse Reactions: Allergies Allergy/AdvReac Type Severity Reaction Status Date / Time phenobarbital Allergy Rash Verified 09/04/19 18:34 PMH/Surg Hx/FS Hx/Imm Hx Previously Healthy: Yes - Surgical History Surgical History: Yes Surgery Procedure, Year, and Place: ABD HERNIA REPAIR;. mohs nose and forehead - Family History Known Family History: Positive: Hypertension Family History: NON CONTRIBUTORY - Social History Alcohol Use: hx of alcoholism, 5 yrs sober Substance Use Type: None Smoking Status (MU): Never Smoked Tobacco - Immunization History Most Recent Influenza Vaccination: 08/2017 Most Recent Tetanus Shot: not sure Most Recent Pneumonia Vaccination: N/A Review of Systems All Other Systems Reviewed And Are Negative: Yes Constitutional: Positive: Negative Skin: Positive: Negative. Negative: Rash Eyes: Positive: Negative ENT: Positive: Negative Respiratory: Positive: Negative Cardiovascular: Positive: Negative Gastrointestinal: Positive: Negative Genitourinary: Positive: Negative Motor: Positive: Decreased ROM. Negative: Weakness Neurovascular: Positive: Negative Musculoskeletal: Positive: Other: - see above Neurological: Positive: Negative. Negative: Weakness, Paresthesia, Numbness Psychological: Positive: Negative Is Patient Immunocompromised?: No Physical Exam Triage Information Reviewed: Yes Appearance: Pain Distress - very pleasant Vital Signs: Initial Vital Signs Temp 97.6 F 09/04/19 18:30 Pulse 72 09/04/19 18:30 Resp 16 09/04/19 18:30 BP 137/99 09/04/19 18:30 Pulse Ox 100 09/04/19 18:30 Vital Signs Reviewed: Yes Eye Exam: Normal ENT Exam: Normal Respiratory Exam: Normal Cardiovascular Exam: Normal Abdominal Exam: Normal Abdomen Description: Positive: Nontender Musculoskeletal: Positive: Strength Intact, ROM Limited @ - flex and ext d/t pain, Other: - neg SLR b/l, strength intact. + 2 patellar equal b/l Neurological Exam: Normal Neurological: Positive: Alert, Muscle Tone Normal Psychological Exam: Normal Skin Exam: Normal Back Pain Course/Dx - Course Course Of Treatment: B/L LBP likely d/t muscle spasm from sleeping in his car. reassured sx should be improving so far. No neurological red flag signs. should get xrays if sx increase or persost - Differential Dx/Diagnosis Differential Diagnosis/HQI/PQRI: Strain, Sprain Provider Diagnosis: Strain of muscle, fascia and tendon of lower back, initial encounter Discharge ED - Sign-Out/Discharge Documenting (check all that apply): Patient Departure All imaging exams completed and their final reports reviewed: No Studies - Discharge Plan Condition: Stable Disposition: HOME Prescriptions: Cyclobenzaprine (NF) [Cyclobenzaprine 5 MG (NF)] 5 mg PO TID PRN #15 tab PRN Reason: Pain - Moderate Patient Education Materials: Low Back Strain (ED) Referrals: John Wagner MD [Primary Care Provider] - 1 Week Additional Instructions: Do not drive or operate machinery/work within 8-10 hrs of taking the cyclobenzaprine. Heat or ice (whichever helps most), topical biofreeze or icy hot and ibuprofen 800mgs every 8 hrs as needed for pain for short term. Xrays should be considered if symptoms increase or persist. - Billing Disposition and Condition Condition: STABLE Disposition: Home
== END 2019-09-04 19:00 | disposition home or self-care (01) ==
LOC: UCCORT 18:24
DX: S39.012A Strain of muscle, fascia and tendon of lower back, initial encounter (principal); Z88.8 Allergy status to other drugs, medicaments and biological substances; X58.XXXA Exposure to other specified factors, initial encounter; Y93.84 Activity, sleeping; Y92.810 Car as the place of occurrence of the external cause
CPT/HCPCS: 99212; G0463

== ENCOUNTER 2019-10-01 12:11 | Emergency (ER) | payer BC ==
--- OUTSIDE RECORDS SUMMARY | 2019-10-01 12:19 | XMS REPORT | Summary of Care ---
:1970 Author Organization [facility] Address [address] [facility] [place] [address] Care Team Providers Name Role Phone John Wagner Primary Care Provider Reason for Referral Refer to Department Only (Routine) Status Reason Specialty Diagnoses / Referred By Referred To Procedures Contact Contact Pending Review Physical Therapy Diagnoses Acute midline low back pain without sciatica John Wagner MD [address] [place] [address] Refer to Department Only (Routine) Status Reason Specialty Diagnoses / Referred By Referred To Procedures Contact Contact Authorized ALLERGY / Allergy Diagnoses Allergic state, initial encounter John Wagner MD [address] [place] [address] Reason for Visit Reason Comments Physical pt presents for physical Encounter Details Date Type Department Care Team Description 09/26/2019 Office Visit [facility] John Wagner MD Routine general medical examination at a health care facility (Primary Dx); Practice [address] [facility] Factor V Leiden mutation (HCC); [address] [place] [address] Allergic state, initial encounter; [place] [address] Itching of ear; [phone] Acute midline low back pain without sciatica Allergies Active Allergy Reactions Severity Noted Date Comments Phenobarbital Unknown Reaction 05/15/2007 documented as of this encounter (statuses as of 09/26/2019) Medications Medication Sig Dispensed Refills Start Date End Date Status Atovaquone-Proguani Take 1 Tab by 0 09/26/2019 Discontinued l HCl (MALARONE PO) mouth DAILY. documented as of this encounter (statuses as of 09/26/2019) Active Problems Problem Noted Date Factor V Leiden mutation 06/18/2010 ENVIRONMENTAL ALLERGIES 05/30/2010 Umbilical hernia without mention of obstruction or gangrene 05/10/2007 documented as of this encounter (statuses as of 09/26/2019) Resolved Problems Problem Noted Date Resolved Date Thrombophlebitis leg 01/19/2012 09/26/2019 Encounter for therapeutic drug monitoring 06/04/2010 09/26/2019 DVT (deep venous thrombosis) 06/02/2010 09/26/2019 residential (current) use of anticoagulants 06/02/2010 09/26/2019 Overview: Managed by [facility]; Referred by: Dr Wagner; Dx; DVT ; INR Goal: 2.0-3.0; Duration: Undetermined.No current blood work to review. UPDATE: 12/10/10-Dr Wagner d/c'd pt's warfarin-see telephone encounter on 12/10/10 -Dr Wagner writes:pt's final ultrasound report showed no clot-he will come off coumadin and warned to avoid positions that may predispose to future clot. documented as of this encounter (statuses as of 09/26/2019) Immunizations Name Administration Dates Next Due DTAP/IPV/HIB 09/22/2010 HEP A/HEP B Combined Vaccine(Peds) 09/22/2010, 05/14/2006, 04/06/2006 (non-US) Influenza (IM) Preservative Free 08/09/2019, 09/07/2016, 09/17/2014, 08/20/2013, 09/13/2012 Influenza (IM) W/Pres 10/21/2015 Influenza Vaccine Whole 08/22/2017 TDAP Vaccine 08/07/2010 Tuberculin Skin Test 10/22/2003 YELLOW FEVER VACCINE 09/22/2010 documented as of this encounter Social History Tobacco Use Types Packs/Day Years Used Date Never Smoker Smokeless Tobacco: Never Used Alcohol Use Drinks/Week oz/Week Comments Yes social Sex Assigned at Date Recorded Not on file Job Start Date Occupation Industry Not on file Not on file Not on file Travel History Travel Start Travel End No recent travel history available. documented as of this encounter Last Filed Vital Signs Vital Sign Reading Time Taken Comments Blood Pressure 106/70 09/26/2019 4:44 PM EST Pulse 70 09/26/2019 4:44 PM EST Temperature - - Respiratory Rate - - Oxygen Saturation 99% 09/26/2019 4:44 PM EST Inhaled Oxygen Concentration - - Weight 92.3 kg (203 lb 6.4 oz) 09/26/2019 4:44 PM EST Height 177.8 cm (5' 10") 09/26/2019 4:44 PM EST Body Mass Index 29.18 09/26/2019 4:44 PM EST documented in this encounter Progress Notes John Wagner MD - 09/26/2019 4:40 PM EST PATIENT: Lee Rodgers : 1970 DATE OF SERVICE: 09/26/2019 CHIEF COMPLAINT: Chief Complaint Patient presents with Physical pt presents for physical Subjective HISTORY OF PRESENT ILLNESS: Lee Rodgers is a 48-y.o. male. In for physical Chari not seen in 5 years. He has been in for various issues to see other doctors .Most recent is some back pain. Not had a lot of back pain before. It is low back. Not down legs. It is constant but not as bad as it was . No B or B symptoms , no fever or weight loss. The ER gave muscle relaxer and he took a few and getting slowly better. He feels sensitive to walnuts. Within a few seconds irritated. Not SOB. Occurs 12 x over couple years Got a bee sting 3 spots and 6 days later got the swelling, not right away . No fever. Lastly itch behind the left ear , frequently many times a day , not put any creams on. Not wake him Began 3 mo ago. Not wearing cpap , energy ok, snores but no apnea 1 blood clot , so not on chronic meds. Past Medical History: Diagnosis Date BCC (basal cell carcinoma), face DVT (deep venous thrombosis) ([facility]) 06/02/2010 leiden V factor ENVIRONMENTAL ALLERGIES [facility] (obstructive sleep apnea) 2011 mild AHI 5.4 sat 87% Pneumonia Family History Problem Relation Age of Onset Non-Applicable Unknown denied No current outpatient medications on file. No current facility-administered medications for this visit. Allergies Allergen Reactions Phenobarbital Unknown Reaction Social History Socioeconomic History Marital status: Spouse name: Not on file Number of children: Not on file Years of education: Not on file Highest education level: Not on file Occupational History Not on file Social Needs Financial resource strain: Not on file Food insecurity: Worry: Not on file Inability: Not on file Transportation needs: Medical: Not on file Non-medical: Not on file Tobacco Use Smoking status: Never Smoker Smokeless tobacco: Never Used Substance and Sexual Activity Alcohol use: Yes Comment: social Drug use: Not on file Sexual activity: Not on file Lifestyle Physical activity: Days per week: Not on file Minutes per session: Not on file Stress: Not on file Relationships Social connections: Talks on phone: Not on file Gets together: Not on file Attends temple service: Not on file Active member of club or organization: Not on file Attends meetings of clubs or organizations: Not on file Relationship status: Not on file Intimate partner violence: Fear of current or ex partner: Not on file Emotionally abused: Not on file Physically abused: Not on file Forced sexual activity: Not on file Other Topics Concern Not on file Social History Narrative Not on file Over the last 2 weeks, have you been feeling down, depressed, anxious, or hopeless?: 0 Over the past 2 weeks, have you felt little interest or pleasure in doing things ?: 0 REVIEW OF SYSTEMS: Review of Systems Constitutional: Some exercise Not a lot of eating meat HENT: Negative for hearing loss. Eyes: Glasses, last check 1 year ago Respiratory: Negative for shortness of breath. Cardiovascular: Negative for chest pain. Gastrointestinal: Negative. Genitourinary: No nocturia Skin: Sees derm Objective PHYSICAL EXAM: VITALS: BP 106/70 (BP Location: Left arm, Patient Position: Sitting) | Pulse 70 | Ht 5' 10" (1.778 m) | Wt 203 lb 6.4 oz (92.3 kg) | SpO2 99% | BMI 29.18 kg/m Body mass index is 29.18 kg/m. Physical Exam Exam is mostly normal. * no apparent distress, eyes clear, ears normal, oral -moist, no suspicious lesions. Mallampati 2 Neck supple, without masses. Heart regular without murmur. Lungs clear. Abdomen soft non-tender no masses. Extremity no clubbing cyanosis or edema. Neuro -no focal deficits negative SLR Skin no suspicious lesions. Dress and hygiene good Good eye contact Thoughts and speech normal Affect Appropriate Mood normal ASSESSMENT / IMPRESSION: ICD-9-CM ICD-10-CM 1. Routine general medical examination at a health care facility overall doing well, but try to loseweight , exercise more V70.0 Z00.00 LIPID PROFILE BASIC METABOLIC PANEL 2. Factor V Leiden mutation (HCC) heterozygous not on chronic anticoagulation , no evidence of clotnow 289.81 D68.51 3. Allergic state, initial encounter Walnuts not think he needs epipen so far but would send to [facility], also the bee sting with reaction 1 week later is odd to me 995.3 T78.40XA REFER TO ALLERGY 4. Itching of ear No skin irritation, paint his eye glass with nail colombian 698.9 L29.9 5 Back pain is improving, should do PT for strengthening Plan Author: John Wagner MD 09/26/2019 17:02 documented in this encounter Plan of Treatment Name Type Priority Associated Diagnoses Order Schedule LIPID PROFILE Lab Routine Routine general medical Expected: 09/26/[address] [facility] (Approximate), Expires: care facility 09/26/2020 BASIC METABOLIC PANEL Lab Routine Routine general medical Expected: [address] [facility] (Approximate), Expires: care facility 09/26/2020 Name Type Priority Associated Diagnoses Order Schedule REFER TO ALLERGY Referral Routine Allergic state, initial Expected: 2018, encounter Expires: 09/26/2020 REFER TO PHYSICAL Referral Routine Acute midline low back 99 Occurrences starting THERAPY / REHAB pain without sciatica 09/26/2019 until 09/26/2020 Health Maintenance Due Date Last Done Comments LIPID DISORDER SCREENING 1988 DIABETES SCREENING 09/21/2011 09/21/2010, 09/21/2010 DEPRESSION SCREENING 09/26/2020 09/26/2019 INFLUENZA VACCINE Completed 08/09/2019, 08/22/2017, 09/07/2016, Additional history exists HPV IMMUNIZATION SERIES Aged Out No longer eligible based on patient's age to complete this topic MENINGOCOCCAL VACCINE IMM Aged Out No longer eligible based on patient's age to complete this topic PNEUMOCOCCAL 0-64 YRS Aged Out No longer eligible based on patient's age to complete this topic documented as of this encounter Results Not on filedocumented in this encounter Visit Diagnoses Diagnosis Routine general medical examination at a health care facility - Primary Factor V Leiden mutation (HCC) Primary hypercoagulable state Allergic state, initial encounter Itching of ear Unspecified pruritic disorder Acute midline low back pain without sciatica documented in this encounter Insurance Payer Benefit Plan / Subscriber ID Effective Dates Phone Address Type Group ANDRES LOPEZBS xxxxxxxxxxxx 2015-Present [employer] Guarant[employer] Name Account Type Relation to Date of Phone Billing Patient Address Lee Rodgers Personal/Family 1970 [phone] (Home) [address] [phone] [place], [place] (Work) [address] documented as of this encounter
[2019-10-01 12:46] VITALS: BP 133/83
--- NOTE | 2019-10-01 12:58 | UC ---
Lower Extremity/Ankle HPI - HPI Summary HPI Summary: 48 yo with past hx of DVT and Facor V Leiden mutation, with DVT about 8 years ago. Factor V Leiden heterozygote, and was not maintained on anticoagulants following his initial treatment with coumadin. At that time, the trigger for DVT was thought to be secondary to travel and possibly a trauma to the leg. He has no recent hx of trauma, no recent illness or surgery. On 09/29, he began developing tightness in the right calf and increased pain with walking. He has no chest pain or dyspnea. - History of Current Complaint Chief Complaint: UCLowerExtremity Stated Complaint: POS DVT IN RT LEG Time Seen by Provider: 10/01/19 12:48 Hx Obtained From: Patient Onset/Duration: Gradual Onset Severity Initially: Mild Severity Currently: Mild Pain Intensity: 2 Aggravating Factor(s): Standing, Ambulation Alleviating Factor(s): Rest Able to Bear Weight: Yes - Risk Factors Gout Risk Factors: Age Over 40 DVT Risk Factors: Prior DVT Septic Arthritis Risk Factor: Negative - Allergies/Home Medications Allergies/Adverse Reactions: Allergies Allergy/AdvReac Type Severity Reaction Status Date / Time phenobarbital Allergy Rash Verified 10/01/19 12:46 Home Medications: Home Medications NK [No Home Medications Reported] 10/01/19 [History Confirmed 10/01/19] PMH/Surg Hx/FS Hx/Imm Hx Previously Healthy: Yes Cardiovascular History: Deep Vein Thrombosis - Surgical History Surgical History: Yes Surgery Procedure, Year, and Place: ABD HERNIA REPAIR;. Skin Cancer nose and forehead. Factor V Leiden - Family History Known Family History: Positive: Hypertension Family History: NON CONTRIBUTORY - Social History Occupation: Employed Full-time Lives: With Family Alcohol Use: None Substance Use Type: None Smoking Status (MU): Never Smoked Tobacco - Immunization History Most Recent Influenza Vaccination: 08/2017 Most Recent Tetanus Shot: unknown Most Recent Pneumonia Vaccination: N/A Review of Systems All Other Systems Reviewed And Are Negative: Yes Constitutional: Positive: Negative Skin: Positive: Negative Eyes: Positive: Negative ENT: Positive: Negative Respiratory: Positive: Negative Cardiovascular: Positive: Negative Gastrointestinal: Positive: Negative Genitourinary: Positive: Negative Motor: Positive: Other - right leg swelling and pain. Neurovascular: Positive: Negative Musculoskeletal: Positive: Negative Neurological: Positive: Negative Psychological: Positive: Negative Is Patient Immunocompromised?: No Physical Exam Triage Information Reviewed: Yes Appearance: Well-Appearing, No Pain Distress Vital Signs: Initial Vital Signs Temp 97.8 F 10/01/19 12:40 Pulse 70 10/01/19 12:40 Resp 18 10/01/19 12:40 BP 133/83 10/01/19 12:40 Pulse Ox 99 10/01/19 12:40 ENT: Positive: Normal ENT inspection Neck: Positive: Supple, Nontender, No Lymphadenopathy Respiratory: Positive: Lungs clear, Normal breath sounds Cardiovascular: Positive: RRR, No Murmur Musculoskeletal Exam: Other - right leg mid calf circumference is 1 cm larger than the left, without pitting edema. Right calf tender to touch. + [facility] - Radiology No standard instances Radiology Interpretation Completed By: Radiologist Summary of Radiographic Findings: Patient Name: PAZ HECK Medical Record#: [id number]. Ordering Physician: Katelynn Reid MD Acct.#: [id number]. : 1970 Age: 48 Sex: M Location: [facility]. Exam Date: 10/01/19 125 ADM Status: REG ER. Order Information: VL LOWER EXT VEINS RIGHT. Accession Number: [id number]. CPT: 79802. Indication: Right leg edema. Duplex Doppler sonography of the deep venous system of the right lower extremity deep. venous system was performed. Bilaterally the common femoral veins appear patent and compressible. Right proximal. greater saphenous vein, proximal deep femoral vein, femoral vein, popliteal vein,. posterior tibial veins and peroneal veins appear patent and compressible. IMPRESSION: NO EVIDENCE OF DEEP VENOUS THROMBOSIS IS IDENTIFIED. . <Electronically signed by Cate Douglas MD in OV> 10/01/191420. Dictated By: Cate Douglas MD. Dictated Date/Time: 10/01/191419. Transcribed Date/Time: 10/01/191419. Copy to: CC:John Wagner MD; Katelynn Reid MD. Imaging - [facility]. [address] [place], [place] [address] [place] [id number]. ph ([phone]) ph ([phone]) ph ([phone]). This report is only to be considered final once signed by the Provider(s) as displayed in the "<Electronically Signed by >" field (s). Absence of a. signature indicates the report is in a draft status and still needs to be finalized. In the event this document was created by someone other than the. signing Provider, the individual initiating the document will be listed in the "Entered by:" or "Dictated by:" medina. 1 of 1 Lower Extremity Course/Dx - Course Course Of Treatment: Negative DVT, discussed follow up if persistent leg swelling. - Differential Dx/Diagnosis Differential Diagnosis/HQI/PQRI: Compartment Syndrome, DVT Provider Diagnosis: Leg pain, right Discharge ED - Sign-Out/Discharge Documenting (check all that apply): Patient Departure All imaging exams completed and their final reports reviewed: Yes - Discharge Plan Condition: Good Disposition: HOME Patient Education Materials: Leg Pain (ED) Referrals: John Wagner MD [Primary Care Provider] - Additional Instructions: The doppler does not show evidence of clot in the leg. You could use a compression stocking on the leg for relief of discomfort. Continue observation; if pain persists or swelling increases, a follow up study could be indicated. - Billing Disposition and Condition Condition: GOOD Disposition: Home
== END 2019-10-01 14:32 | disposition home or self-care (01) ==
LOC: UCEAST 12:11
DX: M79.604 Pain in right leg (principal); D68.51 Activated protein C resistance; R22.41 Localized swelling, mass and lump, right lower limb; Z88.8 Allergy status to other drugs, medicaments and biological substances; Z86.718 Personal history of other venous thrombosis and embolism
CPT/HCPCS: 99211; G0463